=== PATIENT | female | born 1995 | race African-American/Black ===

== ENCOUNTER → 2018-11-14 13:54 | Outpatient (CLI) | payer OTHER, SELFPAY ==
[2018-11-15 14:58] LABS: Strep Grp B PCR NEG for Grp B Strep
== END ==
PROVIDERS: PCP Family Medicine; Visit Provider Family Medicine
DX: Z34.03 Encounter for supervision of normal first pregnancy, third trimester (principal); Z3A.36 36 weeks gestation of pregnancy
CPT/HCPCS: 87653

== ENCOUNTER 2018-12-21 18:02 | Inpatient (IN) | payer OTHER, SELFPAY ==
[2018-12-21 19:08] VITALS: BP 134/80
[2018-12-21 19:18] LABS: Add Manual Diff / Slide Review NO; Basophils Absolute Auto 100 /uL (0-100); Basophils Percent Auto 0.7 % (0-2); Eosinophils Absolute Auto 0 /uL (0-450); Eosinophils Percent Auto 0.5 % (2-4); Hematocrit 32.7 % (36-46); Hemoglobin 11.2 g/dL (12.0-16.0); Lymphocytes Absolute Auto 1700 /uL (1100-4500); Lymphocytes Percent Auto 20.6 % (25-40); Mean Corpuscular HGB Conc 34.4 % (30-36); Mean Corpuscular Hemoglobin 29.3 PG (26-34); Mean Corpuscular Volume 85.1 fL (80-100); Monocytes Absolute Auto 1200 /uL (0-900); Monocytes Percent Auto 14.9 % (3-14); Neutrophils Absolute Auto 5100 /uL (1500-7000); Neutrophils Percent Auto 63.3 % (50-75); Platelet Count 139 X10^3/uL (150-400); Red Blood Cell Count 3.84 X10^6/uL (4.0-5.2); Red Cell Distribution Width 14.3 % (11.6-14.8); White Blood Cell Count 8.1 X10^3/uL (4.5-11.0)
[2018-12-21] MEDS: miSOPROStol 25 MCG TABLET VAG (19:40)
[2018-12-22] MEDS: OXYTOCIN PREMIX 30 UNIT/500 ML PLAST..BAG IV (07:33)
[2018-12-22] MEDS: LACTATED RINGERS 1,000 ML 100 ML IV ×2 (07:33→11:55)
--- NOTE | 2018-12-22 07:48 | P.HPOB_ITS ---
OB HPI Date/Time Date of admission: 12/21/18 Date Patient Seen: 12/22/18 Time Patient Seen: 07:40 History of Present Condition Chief complaint: labor & delivery : 1 Para: 0 Estimated Date of Delivery: 12/14/18 Estimated Gestational Age (weeks): 41w1d Narrative: Holly Bolanos is a 23 year old at 41w1d who presented for IOL for post-dates. She denies any contractions, vaginal bleeding, or LOF prior to presentation. Overnight, she rates her contractions as a 4/10 on the pain scale after one dose of cytotec. She has been feeling her baby move regularly. Indications Indication for induction OB: post dates History of Present care: good care Dating criteria: LMP confirmed by 2nd trimester US Ultrasounds: normal mid trimester US Obstetrical complications: none Medical complications: none Preadmission Labs Blood type: O (+) positive -: Antibody screen: negative, Cystic fibrosis screen: negative, GBS status: negative, HBsAG: negative, HIV: negative and RPR/VDLR: negative -: Chlamydia screen: not detected and Gonorrhea screen: not detected -: Rubella: immune and Varicella: immune HCT: 31.2 HCAB: negative Cell-free DNA: Negative 1 hr GTT: 128 Evaluation Evaluation Baseline heart rate: 140 Variability: Moderate (11-25) monitor accelerations: Present monitor decelerations: Absent Contraction Frequency (minutes): 3 Uterine Contraction Intensity: Moderate Category of Tracing: I Cervical dilation (cm): 1 Cervical effacement (%): 75 station: -1 Laboratory results: Laboratory Tests 12/21/18 12/21/18 19:00 19:00 WBC 8.1 RBC 3.84 L Hgb 11.2 L Hct 32.7 L MCV 85.1 MCH 29.3 MCHC 34.4 RDW 14.3 Plt Count 139 L Neut % (Auto) 63.3 Lymph % (Auto) 20.6 L [place] % (Auto) 14.9 H Eos % (Auto) 0.5 L Baso % (Auto) 0.7 Neut # (Auto) 5100 Lymph # (Auto) 1700 [place] # (Auto) 1200 H Eos # (Auto) 0 Baso # (Auto) 100 Blood Type O Positive Antibody Screen Negative [facility] Surgical History (Updated 10/09/18 @ 20:51 by Marilia Platt) Anesthesia (Resolved) History of hand surgery (Resolved ~11/14/16) Social History Smoking Status: Former smoker Social History Smoking Status: Former smoker Meds Home Medications Medication Instructions Recorded Confirmed Type calcium carbonate 200 mg calcium 200 mg PO BID tab 09/24/18 12/22/18 History (500 mg) chewable tablet folic acid 0.8 mg capsule 0.8 mg PO DAILY 09/24/18 12/22/18 History 1 tab PO DAILY 09/24/18 12/22/18 History vitamin,calcium,bsddjynx-lwrv-ggmab acid tablet Allergies Allergy/AdvReac Type Severity Reaction Status Date / Time No Known Drug Allergies Allergy Verified 11/21/18 14:00 Exam Narrative Exam Narrative: Gen: NAD, sitting comfortably in bed, appears well CV: RRR, no murmurs Resp: clear to auscultation bilaterally Abd: soft, nondistended, gravid Ext: trace edema Objective Labs Result Diagrams: 12/21/18 19:00 Labs: Laboratory Results - last 24 hr 12/21/18 12/21/18 19:00 19:00 WBC 8.1 RBC 3.84 L Hgb 11.2 L Hct 32.7 L MCV 85.1 MCH 29.3 MCHC 34.4 RDW 14.3 Plt Count 139 L Neut % (Auto) 63.3 Lymph % (Auto) 20.6 L [place] % (Auto) 14.9 H Eos % (Auto) 0.5 L Baso % (Auto) 0.7 Neut # (Auto) 5100 Lymph # (Auto) 1700 [place] # (Auto) 1200 H Eos # (Auto) 0 Baso # (Auto) 100 Blood Type O Positive Antibody Screen Negative Assessment and Plan Assessment and Plan Assessment and Plan narrative: 23yo at 41w1d who presented for IOL for post-dates. No complications with . Rh positive, GBS negative. Re ceived single dose of cytotec overnight with regular painful contractions now. - Expectant management, anticipate - GBS negative, no antibiotic prophylaxis indicated - FHT reassuring - Epidural for pain control if pt desires, but would encourage labor without for now due to early labor
--- NOTE | 2018-12-22 09:40 | PM.OBPNLAB ---
Date/Time Date Patient Seen: 12/22/18 Time Patient Seen: 09:30 Pain Control Pain control: tolerating well Pelvic Exam Dilation (cm): 2 Effacement (%): 75 station: -1 Amniotic membrane status: Ruptured Comments: After informed consent, AROM performed with production of thin meconium Contractions Pitocin rate (mU/min): 9 Contraction frequency (min): 3 Contraction duration (min): 1 Contraction pattern: Regular Contraction intensity: Moderate Status status: Category l Heart Rate Baseline: 155 Monitor Accelerations: Present Monitor Decelerations: Absent Monitor Variability: Moderate Assessment and Plan Comments: 23yo at 41w1d who presented for IOL for post-dates. No complications with . Rh positive, GBS negative. Received single dose of cytotec overnight with regular painful contractions. Now on pitocin. AROM performed with production of thin meconium. - Expectant management, anticipate - GBS negative, no antibiotic prophylaxis indicated - FHT reassuring - Epidural for pain control if pt desires, but would encourage labor without for now due to early labor
--- NOTE | 2018-12-22 15:27 | PM.OBPNLAB ---
Date/Time Date Patient Seen: 12/22/18 Time Patient Seen: 15:15 Pain Control Pain control: epidural Pelvic Exam Dilation (cm): 10 Effacement (%): 100 station: +2 Amniotic membrane status: Ruptured Contractions Pitocin rate (mU/min): 4 Contraction frequency (min): 2 Contraction pattern: Regular Contraction intensity: Strong/Firm Status status: Category l Heart Rate Baseline: 135 Monitor Accelerations: Present Monitor Decelerations: Absent Monitor Variability: Moderate Assessment and Plan Assessment: active labor Comments: 23yo at 41w1d who presented for IOL for post-dates. No complications with . Rh positive, GBS negative. Received single dose of cytotec overnight, now on pitocin. Progressed to complete. After practice push, will have pt labor down for now. FSE in place due to difficulty monitoring baby. - Expectant management, anticipate - GBS negative, no antibiotic prophylaxis indicated - FHT reassuring - Epidural for pain control
--- NOTE | 2018-12-22 18:34 | P.PCNOB_ITS ---
Delivery date: 12/22/18 Cervical ripening method: per misoprostal protocol Induction method: per pitocin protocol Delivery augmentation: rupture of membranes Delivery monitor: external FHT and internal FHT Route of delivery: Episiotomy description: None L&D Laceration Description: Perineal - 1st Degree Delivery repair: chromic Estimated blood loss (mL): 200 Anesthesia type: Epidural Complications: None Narrative: at 41w1d presented for post-dates IOL and was admitted to Labor and Delivery. The patient progressed through the 1st stage over 7.5 hours. She received Cytotec and then Pitocin for induction. AROM was performed with production of thin meconium. Pain was controlled with an epidural. The patient progressed through the 2nd stage over 1 hours and delivered a viable male with APGARs 8/9 at 18:01 via without complications. The baby cried spontaneously immediately after delivery. The cord was cut and clamped after it stopped pulsing. The perineum and vagina were inspected with 1st degree perineal laceration repaired with 3-O Chromic. PREPROCEDURE DIAGNOSIS: Intrauterine at 41w1d GBS negative RH positive POSTPROCEDURE DIAGNOSIS: Intrauterine at 41w1d, delivered Same as preprocedure PROCEDURE: Spontaneous vaginal delivery ROM APPEARANCE: Thin meconium BABY A WEIGHT: 9lb, 4080g BABY A NUCHAL CORD: x1 body cord reduced after delivery BABY A CORD GASES OBTAINED: No PLACENTA DELIVERY TIME: 18:14 PLACENTA APPEARANCE: Intact [place] Baby 1: gender: Female Presentation: vertex position: Right Occiput Anterior Placenta delivery description: Spontaneous cord vessel description: 3 Vessels score (1 min): 8 score (5 min): 9 Plan for aftercare: Normal care
[2018-12-22] MEDS: IBUPROFEN 600 MG TABLET PO (20:08)
[2018-12-23] MEDS: IBUPROFEN 600 MG TABLET PO ×4 (02:14→21:37)
[2018-12-23 05:42] LABS: Hematocrit 29.8 % (36-46); Mean Corpuscular HGB Conc 33.7 % (30-36); Mean Corpuscular Volume 86.1 fL (80-100); Platelet Count 121 X10^3/uL (150-400); Red Blood Cell Count 3.46 X10^6/uL (4.0-5.2); Red Cell Distribution Width 14.1 % (11.6-14.8); White Blood Cell Count 10.3 X10^3/uL (4.5-11.0)
[2018-12-23] MEDS: DOCUSATE 250 MG CAPSULE PO (09:18)
[2018-12-23] MEDS: PRENATAL VIT,CALC/IRON/FOLIC 1 TABLET 1 TAB PO (09:18)
--- NOTE | 2018-12-23 13:58 | P.PNOB_ITS ---
Subjective - OB Narrative: The pt is doing well this morning overall. She is feeling well. Her pain is well controlled. Her lochia is appropriate. Last night, the pt did report having chest pressure when up to use the bathroom. She was tachycardic to the 130s when back in bed. The pts chest discomfort resolved completely when she got back into bed. She was unable to void x2, and bladder scan revealed 900cc of urine in her bladder. Miller was placed. This morning, her miller was removed. The pt again endorsed having chest pain when ambulating. She states the pain feels like someone is sitting on my chest. She denies associated palpitations, diaphoresis, nausea, or any radiation of the pain. The pain is located directly to the right of her sternum. It resolves as soon as she is seated/laying down again. She has never felt a similar pain in the past. The pts vitals were noted to be stable. Date Patient Seen: 12/23/18 Time Patient Seen: 08:00 Exam Narrative Exam Narrative: Gen: NAD, sitting comfortably in bed, appears well, speaking easily Neck: no JVD CV: RRR, no murmurs Resp: clear to auscultation bilaterally Abd: soft, slightly distended, nontender, fundus firm and well below the umbilicus, normoactive bowel sounds Ext: 1+ edema bilaterally Objective ECG Impression: Normal sinus rhythm. No ST- or T-wave changes. Imaging CT scan - chest: Radiologist's impression: 1. Suboptimal exam secondary to injection timing. No central pulmonary embolism. Distal segmental emboli cannot be definitively excluded. Labs Result Diagrams: 12/23/18 14:17 12/23/18 14:17 Labs: Laboratory Results - last 24 hr 12/23/18 05:09 WBC 10.3 RBC 3.46 L Hgb 10.0 L Hct 29.8 L MCV 86.1 MCH 29.0 MCHC 33.7 RDW 14.1 Plt Count 121 L Assessment & Plan (1) (spontaneous vaginal delivery): Status: Acute Current Visit: Yes (2) Chest pain: Status: Acute Current Visit: Yes Plan Comments: 23yo PPD #1 s/p without complications after IOL for post- dates. Pt endorsing chest pain with any ambulation. Walking O2 sats remain > 98%, with mild tachycardia. EKG completed normal, with negative troponin and CK only slightly elevated, likely simply due to the pt being . CTA chest completed that did not reveal any PE. Pt now states that her pain is significantly diminished, more like a discomfort, and is lower more towards her abdomen. Possibly due to gas pain vs muscle strain. No additional work-up at this time. - Normal care - support Time Spent With Patient Total time spent is greater than 50% in coordination of care (as documented) at patient's floor/unit and/or counseling patient: Greater than 35 minutes
--- NOTE | 2018-12-23 14:02 | DI.CT.S_ITS ---
PROCEDURE: CT ANGIO CHEST INDICATIONS: chest pain with ambulation, tachycardia, r/o PE TECHNIQUE: After the administration of intravenous contrast, 2 mm thick sections acquired from the pulmonary apices to the posterior costophrenic angles. 3-dimensional maximum intensity projection (MIP) coronal and sagittal reformats were then acquired through the thorax. For radiation dose reduction, the following was used: automated exposure control, adjustment of mA and/or kV according to patient size. COMPARISON: None. FINDINGS: Image quality: Suboptimal injection for evaluation of distal pulmonary vessels. Pulmonary arteries: Pulmonary arteries are normal in size, and demonstrate no intraluminal filling defects to suggest central pulmonary embolism. Lungs and pleura: Lungs are clear. No pleural effusions or pneumothorax. Central and peripheral airways are patent. Mediastinum: Heart size is normal, without pericardial effusion. No mediastinal or hilar adenopathy. Thoracic aorta is normal in caliber and enhancement. Esophagus is normal in caliber, without hiatal hernia. Bones and chest wall: No suspicious bony lesions. Ribs and thoracic spine appear intact throughout. Thyroid gland is unremarkable. No axillary or supraclavicular adenopathy. Abdomen: Visualized upper abdominal solid organs appear normal in the early arterial phase of enhancement. IMPRESSION: 1. Suboptimal exam secondary to injection timing. No central pulmonary embolism. Distal segmental emboli cannot be definitively excluded. Dictated by: Renae Gomes M.D. on 12/23/2018 at 15:55 Approved by: Renae Gomes M.D. on 12/23/2018 at 15:56
[2018-12-23 14:25] LABS: Add Manual Diff / Slide Review NO; Basophils Absolute Auto 100 /uL (0-100); Basophils Percent Auto 0.6 % (0-2); Eosinophils Absolute Auto 0 /uL (0-450); Eosinophils Percent Auto 0.5 % (2-4); Hematocrit 28.5 % (36-46); Hemoglobin 9.6 g/dL (12.0-16.0); Lymphocytes Absolute Auto 1400 /uL (1100-4500); Lymphocytes Percent Auto 16.1 % (25-40); Mean Corpuscular HGB Conc 33.7 % (30-36); Mean Corpuscular Hemoglobin 28.9 PG (26-34); Mean Corpuscular Volume 85.9 fL (80-100); Monocytes Absolute Auto 1100 /uL (0-900); Monocytes Percent Auto 12.4 % (3-14); Neutrophils Absolute Auto 6200 /uL (1500-7000); Neutrophils Percent Auto 70.4 % (50-75); Platelet Count 112 X10^3/uL (150-400); Red Blood Cell Count 3.32 X10^6/uL (4.0-5.2); Red Cell Distribution Width 14.5 % (11.6-14.8); White Blood Cell Count 8.8 X10^3/uL (4.5-11.0)
[2018-12-23 14:36] LABS: INR 0.9 (0.9-1.3); Prothrombin Time 10.7 SECONDS (10.1-12.7)
[2018-12-23 14:39] LABS: PTT Partial Thromboplastin Tim 20 SECONDS (26.4-36.2)
[2018-12-23 14:49] LABS: Alanine Aminotransferase 23 IU/L (9-52); Albumin Globulin Ratio 1.1 (1.0-2.8); Alkaline Phosphatase 141 U/L (38-126); Aspartate Aminotransferase 33 IU/L (14-36); BUN Creatinine Ratio 12.5 (6-22); Bilirubin Total 0.1 mg/dL (0.2-1.3); Blood Urea Nitrogen 10 mg/dL (7-17); Carbon Dioxide 22 mmol/L (22-32); Chloride 111 mmol/L (98-107); Creatine Kinase 588 U/L (30-135); Estimated Glomerular Filt Rate > 60.0 mL/min (>60); Globulin 2.8 g/dL (1.7-4.1); Glucose 138 mg/dL (70-100); HEMOLYSIS < 15 (0-50); Potassium 4.1 mmol/L (3.4-5.1); Sodium 140 mmol/L (137-145); Total Protein 5.8 g/dL (6.3-8.2)
[2018-12-23 15:01] LABS: Troponin I < 0.012 ng/mL (0.01-0.034)
[2018-12-23 15:04] LABS: CKMB % Relative Index 0.6 % (1.5-5.0); Creatine Kinase MB 3.71 ng/mL (<2.37)
[2018-12-24] MEDS: IBUPROFEN 600 MG TABLET PO ×2 (04:40→09:58)
--- NOTE | 2018-12-24 08:40 | P.DS_ITS ---
Discharge Providers Date of admission: 12/21/18 18:02 Discharge Date: 12/24/18 Primary care physician: Liseth Cabrera MD Consults: 12/22/18 18:26 Consult to Licensed Home Inspector Routine Comment: Discharge provider: Liseth Cabrera MD Summary Date Patient Seen: 12/24/18 Time Patient Seen: 08:20 Procedures: Spontaneous vaginal delivery Hospital Course: The pt presented for IOL due to post-dates. She received cytotec and pitocin, with AROM performed with the production of meconium-stained fluid. The pt progressed to complete, with an epidural for pain control. She had a of a viable baby girl on 12/22/18. A 1st degree perineal laceration was repaired. , the pt had urinary retention after the epidural wore off, and miller was replaced overnight. The next day she was able to void. The evening of 12/22 into 12/23 she developed chest pressure. Lab work was unrevealing, and CTA chest did not show any PE. EKG showed no changes. The pain resolved, and was determined to be due to musculoskeletal strain. At the time of discharge, the pt was voiding, ambulating, and passing flatus without difficulty. Her pain was adequately controlled and her lochia was decreasing appropriately. She was with good latch. She will f/u in clinic in 6 weeks. She is considering contraception options, but will likely want to use pills. Peripartum Data Delivery Method: Natural Vaginal Laceration description: Perineal - 1st Degree Episiotomy description: None Procedures: Spontaneous vaginal delivery [place] 1: Gender: Female Disposition of : home Discharge Diagnosis (1) (spontaneous vaginal delivery): Status: Acute (2) Chest pain: Status: Acute Status at Discharge Cognitive/behavioral status at discharge: oriented Functional status at discharge: independent ambulation Overall status at discharge: patient is progressing back to baseline Time Spent with Patient Total time spent providing and/or coordinating discharge services: Objective Labs Result Diagrams: 12/23/18 14:17 12/23/18 14:17 Labs: Laboratory Results - last 24 hr 12/23/18 12/23/18 12/23/18 14:17 14:17 14:17 WBC 8.8 RBC 3.32 L Hgb 9.6 L Hct 28.5 L MCV 85.9 MCH 28.9 MCHC 33.7 RDW 14.5 Plt Count 112 L Neut % (Auto) 70.4 Lymph % (Auto) 16.1 L [place] % (Auto) 12.4 Eos % (Auto) 0.5 L Baso % (Auto) 0.6 Neut # (Auto) 6200 Lymph # (Auto) 1400 [place] # (Auto) 1100 H Eos # (Auto) 0 Baso # (Auto) 100 PT 10.7 INR 0.9 APTT 20 L Sodium 140 Potassium 4.1 Chloride 111 H Carbon Dioxide 22 BUN 10 Creatinine 0.80 Estimated GFR > 60.0 BUN/Creatinine Ratio 12.5 Glucose 138 H Calcium 9.0 Total Bilirubin 0.1 L AST 33 ALT 23 Alkaline Phosphatase 141 H Total Creatine Kinase 588 H CK-MB (CK-2) 3.71 H CK-MB (CK-2) Rel Index 0.6 L Troponin I < 0.012 Total Protein 5.8 L Albumin 3.0 L Globulin 2.8 Albumin/Globulin Ratio 1.1 Exam Narrative Exam Narrative: Gen: NAD, sitting comfortably in bed, appears well CV: RRR, no murmurs Resp: clear to auscultation bilaterally Abd: soft, nondistended, normoactive bowel sounds, fundus firm and below the umbilicus Ext: trace edema Discharge Plan Discharge Plan Patient Disposition: Home Discharge Med Rec/Prescriptions Prescriptions: New acetaminophen 325 mg Tablet 650 mg PO Q6HR PRN (Reason: Pain, Mild (1-3)) Qty: 30 RF: 0 Dermoplast (with menthol) 20-0.5 % Aerosol 1 spray topical Q1HR PRN (Reason: perineal pain) Qty: 15 RF: 0 ibuprofen 600 mg Tablet 600 mg PO Q6HR PRN (Reason: Pain, Mild (1-3)) Qty: 30 RF: 0 docusate sodium 250 mg Capsule 250 mg PO DAILY Qty: 30 RF: 0 Fck-Q-Zluihr Cream 1 applic topical PRN PRN (Reason: Tenderness) Qty: 15 RF: 0 Continued calcium carbonate [Tums] 200 mg calcium (500 mg) tablet,chewable 200 mg PO BID RF: 0 prenat.vits,falguni,feu-stqe-kfmuy tablet 1 tab PO DAILY RF: 0 folic acid 0.8 mg capsule 0.8 mg PO DAILY RF: 0 Follow up/Referrals: Liseth Cabrera MD [Primary Care Provider] - 6 Weeks (Dr. Narvaez office will call you to arrange follow up. Please call them if you havent made appointment by Tuesday 12/26) Provider Discharge Instructions Diet: Diet as Tolerated and Regular Skin/Wound/Dressing Care Report to your healthcare provider any signs of infection, such as:: chills, fever and increased pain Visit Report/Discharge Packet Instructions: DI for Labor and Delivery, Vaginal Stand Alone Forms: Discharge: Care Visit Report Forms: Stroke Signs & Symptoms Discharge Data Primary Care Provider: Liseth Cabrera Attending Provider: Liseth Cabrera Admit Date/Time: 12/21/18 18:02 Discharges patient from system. Discharge Date/Time: 12/24/18 11:00
[2018-12-24 09:15] VITALS: BP 129/76; PULSE 84; RESP 16; TEMP 36.7
[2018-12-24] MEDS: DOCUSATE 250 MG CAPSULE PO (09:58)
[2018-12-24] MEDS: PRENATAL VIT,CALC/IRON/FOLIC 1 TABLET 1 TAB PO (09:58)
== END 2018-12-24 11:00 | disposition home or self-care (01) | DRG 807 ==
PROVIDERS: Admitting Provider Family Medicine; PCP Family Medicine; Visit Provider Family Medicine
DX: O48.0 Post-term pregnancy (principal); Z37.0 Single live birth; Z3A.41 41 weeks gestation of pregnancy; O70.0 First degree perineal laceration during delivery; O77.0 Labor and delivery complicated by meconium in amniotic fluid; R00.0 Tachycardia, unspecified; R07.89 Other chest pain
CPT/HCPCS: 01967; 36415; 59050; 59410; 71275; 80053; 82550; 82553; 84484; 85025; 85027; 85610; 85730; 86850; 86900; 86901; 93005; 93010; G0379; J2590; Q9967

== ENCOUNTER → 2020-02-18 11:15 | Outpatient (CLI) | payer OTHER, SELFPAY ==
[2020-02-19 18:36] LABS: COVID19 Sendout Not Detected (Not Detected)
== END ==
PROVIDERS: PCP Family Medicine; Visit Provider Physician Assistant
DX: R50.9 Fever, unspecified (principal)
CPT/HCPCS: 87635

== ENCOUNTER → 2020-02-22 12:26 | Outpatient (CLI) | payer OTHER, SELFPAY ==
[2020-02-22 13:44] LABS: Add Manual Diff / Slide Review NO; Basophils Absolute Auto 0 /uL (0-100); Basophils Percent Auto 1.3 % (0-2); Eosinophils Absolute Auto 0 /uL (0-450); Eosinophils Percent Auto 1.3 % (2-4); Hematocrit 35.4 % (36-46); Hemoglobin 11.6 g/dL (12.0-16.0); Lymphocytes Absolute Auto 1100 /uL (1100-4500); Lymphocytes Percent Auto 30.4 % (25-40); Mean Corpuscular HGB Conc 32.8 % (30-36); Mean Corpuscular Hemoglobin 28.2 PG (26-34); Monocytes Absolute Auto 700 /uL (0-900); Monocytes Percent Auto 18.5 % (3-14); Neutrophils Absolute Auto 1700 /uL (1500-7000); Neutrophils Percent Auto 48.5 % (50-75); Platelet Count 162 X10^3/uL (150-400); Red Blood Cell Count 4.11 X10^6/uL (4.0-5.2); Red Cell Distribution Width 13.2 % (11.6-14.8); White Blood Cell Count 3.6 X10^3/uL (4.5-11.0)
[2020-02-22 14:30] LABS: TSH w/ Reflex to FT4 1.54 uIU/mL (0.47-4.68)
== END ==
PROVIDERS: PCP Family Medicine; Referring Provider Family Medicine; Visit Provider Family Medicine
DX: R61 Generalized hyperhidrosis (principal)
CPT/HCPCS: 36415; 84443; 85025